=== PATIENT | female | born 1955 | race Caucasian/White ===

== ENCOUNTER 2020-10-09 01:00 | Emergency (ER) | payer BC ==
[2020-10-09] MEDS ORDERED: Ketorolac 60 MG/2 ML SDV IM ONE (01:30)
[2020-10-09] MEDS ORDERED: Acetaminophen/HYDROcodone 325-5 MG Tab PO ONE (01:31)
[2020-10-09] MEDS ORDERED: Baclofen 10 MG Tab PO ONE (01:31)
--- NOTE | 2020-10-09 01:37 | EDM.PDOC ---
ED HPI GENERAL MEDICAL PROBLEM - General Chief Complaint: General Stated Complaint: MUSCLE SPASM Time Seen by Provider: 10/09/20 01:32 Source of Information: Reports: Patient History Limitations: Reports: No Limitations - History of Present Illness INITIAL COMMENTS - FREE TEXT/NARRATIVE: pt had severe pain in the left tmj area radiating accross the face on the rt. She has had this in the past. The pain is there constantly. Onset: Today Duration: Hour(s): Location: Reports: Face Associated Symptoms: Reports: Other ( svere facial pain. ) left TMJ Pain Score (Numeric/FACES): 9 - Related Data Allergies Allergy/AdvReac Type Severity Reaction Status Date / Time No Known Allergies Allergy Verified 10/09/20 01:14 Home Meds: Home Meds Levothyroxine [Synthroid] 50 mcg PO ACBREAKFAST 10/09/20 [History] Past Medical History Endocrine/Metabolic History: Reports: Hypothyroidism, Obesity/BMI 30+ - Infectious Disease History Infectious Disease History: Reports: Chicken Pox, Measles, Mumps, Pertussis (Whooping Cough) - Past Surgical History HEENT Surgical History: Reports: Naso-Sinus Surgery GI Surgical History: Reports: Colonoscopy Social & Family History - Tobacco Use Tobacco Use Status *Q: Never Tobacco User - Caffeine Use Caffeine Use: Reports: None - Recreational Drug Use Recreational Drug Use: No ED ROS GENERAL - Review of Systems Review Of Systems: See Below Constitutional: Reports: No Symptoms HEENT: Reports: Other ( facial pain, spasm. ) Respiratory: Reports: No Symptoms Cardiovascular: Reports: No Symptoms Endocrine: Reports: No Symptoms GI/Abdominal: Reports: No Symptoms : Reports: No Symptoms Musculoskeletal: Reports: Other ( spasm on the left side of her face. ) Skin: Reports: No Symptoms ED EXAM, GENERAL - Physical Exam Exam: See Below Free Text/Narrative:: pt arrived with severe pain on the left side of her face. If feels like the muscles are very tight. She has had this in the past and was told she had TMJ Exam Limited By: No Limitations General Appearance: Alert, Anxious, Moderate Distress Ears: Normal TMs Nose: Normal Inspection Throat/Mouth: Other ( salivary ducts appear normal . parotid gland is not swollen. a) Head: Atraumatic, Other (pt ids tender in the left tmj area. She does have very tight muscles. ) Neck: Normal Inspection Respiratory/Chest: No Respiratory Distress Cardiovascular: Regular Rate, Rhythm GI/Abdominal: Soft, Non-Tender (Female) Exam: Deferred Rectal (Female) Exam: Deferred Back Exam: Normal Inspection Extremities: Normal Inspection Course - Vital Signs Last Recorded V/S: Last Vital Signs Temp 36.6 C 10/09/20 01:15 Pulse 75 10/09/20 01:15 Resp 18 10/09/20 01:15 BP 141/77 H 10/09/20 01:15 Pulse Ox 98 10/09/20 01:15 - Orders/Labs/Meds Meds: Medications Discontinued Medications Generic Name Dose Route Start Last Admin Trade Name Freq PRN Reason Stop Dose Admin Hydrocodone Bitart/Acetaminophen 1 tab 10/09/20 01:31 10/09/20 01:37 Claridge 325-5 Mg PO 10/09/20 01:32 1 tab ONETIME ONE Administration Baclofen 10 mg 10/09/20 01:31 10/09/20 01:37 Lioresal PO 10/09/20 01:32 10 mg ONETIME ONE Administration Ketorolac Tromethamine 60 mg 10/09/20 01:30 10/09/20 01:38 Toradol IM 10/09/20 01:31 60 mg ONETIME ONE Administration - Re-Assessments/Exams Free Text/Narrative Re-Assessment/Exam: 10/09/20 01:37 pt was given torodol 60mg im, baclofen 10 mg and norco 5/325. pt is feeling slightly better and at this point wishes to go home to rest. 10/09/20 01:55 Departure - Departure Time of Disposition: 01:55 Disposition: Home, Self-Care 01 Clinical Impression: TMJ arthralgia - Discharge Information Referrals: Rosa Maria Lake MD [Primary Care Provider] - Forms: ED Department Discharge Care Plan Goals: moist warm heat to the area followed by a cool pack, baclofen 10 mg bid, norco 5/325 q6h prn for severe pain. Sepsis Event Note (ED) - Evaluation Sepsis Screening Result: No Definite Risk - Focused Exam Vital Signs: Vital Signs Temp Pulse Resp BP Pulse Ox 10/09/20 01:15 36.6 C 75 18 141/77 H 98
== END 2020-10-09 02:14 | disposition home or self-care (01) ==
LOC: JP.ED 01:00
DX: M26.622 Arthralgia of left temporomandibular joint (principal); E03.9 Hypothyroidism, unspecified; E66.9 Obesity, unspecified; Z68.32 Body mass index [BMI] 32.0-32.9, adult; Z79.899 Other long term (current) drug therapy
CPT/HCPCS: 96372; 99283; A9270-GY; J1885

== ENCOUNTER 2021-09-23 17:56 | Emergency (ER) | payer BC ==
--- NOTE | 2021-09-23 18:53 | EDM.PDOC ---
ED HPI GENERAL MEDICAL PROBLEM - General Chief Complaint: Respiratory Problem Stated Complaint: COUGH,FEVER, LOW OXYGEN Time Seen by Provider: 09/23/21 18:43 Source of Information: Reports: Patient, Old Records History Limitations: Reports: No Limitations - History of Present Illness INITIAL COMMENTS - FREE TEXT/NARRATIVE: Edwina is a 65-year-old female presenting to the ED for evaluation of possible Covid. Patient states that she has had symptoms for almost a week at this time including fever, chills, cough, shortness of breath, hypoxia as she has been checking her home oximetry, body aches, but denies any headache, nausea or vomiting, constipation or diarrhea. Patient is unvaccinated for COVID-19 because she is concerned about the vaccine interacting with her multiple medications. She has not been taking any substantial measures to avoid contact with others including masking in public. She was scheduled to get a Covid test tomorrow. Her primary provider is Regina Hewitt at [facility]. She felt more short of breath today prompting her to come in for evaluation. - Related Data Allergies Allergy/AdvReac Type Severity Reaction Status Date / Time No Known Allergies Allergy Verified 09/23/21 19:05 Home Meds: Home Meds NK [No Known Home Meds] 09/23/21 [History] Past Medical History Endocrine/Metabolic History: Reports: Hypothyroidism, Obesity/BMI 30+ - Infectious Disease History Infectious Disease History: Reports: Chicken Pox, Measles, Mumps, Pertussis (Whooping Cough) - Past Surgical History HEENT Surgical History: Reports: Naso-Sinus Surgery GI Surgical History: Reports: Colonoscopy Social & Family History - Caffeine Use Caffeine Use: Reports: None ED ROS GENERAL - Review of Systems Review Of Systems: See Below Constitutional: Reports: Fever, Chills, Malaise, Weakness HEENT: Reports: Rhinitis Respiratory: Reports: Shortness of Breath, Cough, Sputum (Mucousy sputum) Cardiovascular: Reports: No Symptoms Endocrine: Reports: Fatigue GI/Abdominal: Reports: No Symptoms : Reports: No Symptoms Musculoskeletal: Reports: Muscle Pain Skin: Reports: No Symptoms Neurological: Reports: Weakness (Generalized weakness) Psychiatric: Reports: Anxiety Hematologic/Lymphatic: Reports: No Symptoms Immunologic: Reports: No Symptoms ED EXAM, GENERAL - Physical Exam Exam: See Below Exam Limited By: No Limitations General Appearance: Alert, Anxious, Mild Distress Eye Exam: Bilateral Eye: EOMI, PERRL Ears: Normal External Exam, Normal TMs Nose: Nasal Swelling, Nasal Drainage, Clear Rhinorrhea Throat/Mouth: Normal Inspection, Normal Oropharynx, No Airway Compromise Head: Atraumatic, Normocephalic Neck: Normal Inspection, Supple. No: Lymphadenopathy (R), Lymphadenopathy (L) Respiratory/Chest: No Respiratory Distress, No Accessory Muscle Use, Decreased Breath Sounds (Minutes breath sounds in the bases), Rhonchi (Had a rhonchi especially in the bases) Cardiovascular: Normal Peripheral Pulses, Regular Rate, Rhythm, No Murmur Peripheral Pulses: 2+: Radial (L), Radial (R) GI/Abdominal: Normal Bowel Sounds, Soft, Non-Tender Back Exam: Normal Inspection Extremities: Normal Inspection Neurological: Alert, Oriented, Normal Cognition, No Motor/Sensory Deficits Psychiatric: Normal Affect Skin Exam: Warm, Dry, Intact, Normal Color, No Rash Course - Vital Signs Last Recorded V/S: Last Vital Signs Temp 38.4 C H 09/23/21 19:10 Pulse 102 H 09/23/21 19:10 Resp 22 H 09/23/21 19:10 BP 108/71 09/23/21 19:10 Pulse Ox 90 L 09/23/21 19:10 - Orders/Labs/Meds Orders: Active Orders 24 hr Category Date Time Status Chest 1V Frontal [CR] Stat Exams 09/23/21 18:43 Taken Isolation [COMM] Stat Oth 09/23/21 18:44 Ordered Labs: Laboratory Tests 09/23/21 09/23/21 09/23/21 Range/Units 18:43 19:14 19:14 WBC 4.5 (4.5-11.0) K/uL RBC 4.00 (3.30-5.50) M/uL Hgb 11.8 L (12.0-15.0) g/dL Hct 36.0 (36.0-48.0) % MCV 90 (80-98) fL MCH 30 (27-31) pg MCHC 33 (32-36) % Plt Count 165 (150-400) K/uL Neut % (Auto) 57.3 (36-66) % Lymph % (Auto) 27.8 (24-44) % [place] % (Auto) 14.1 H (2-6) % Eos % (Auto) 0.4 L (2-4) % Baso % (Auto) 0.4 (0-1) % D-Dimer, Quantitative 636.24 H (0.0-500.0) ng/mL Sodium (140-148) mmol/L Potassium (3.6-5.2) mmol/L Chloride (100-108) mmol/L Carbon Dioxide (21-32) mmol/L Anion Gap (5.0-14.0) mmol/L BUN (7-18) mg/dL Creatinine (0.6-1.0) mg/dL Est Cr Clr Drug Dosing mL/min Estimated GFR (MDRD) (>60) Glucose (74-106) mg/dL Lactic Acid (0.4-2.0) mmol/L Calcium (8.5-10.1) mg/dL Ferritin (8-388) ng/ml Total Bilirubin (0.2-1.0) mg/dL AST (15-37) U/L ALT (12-78) U/L Alkaline Phosphatase (46-116) U/L Lactate Dehydrogenase (82-234) U/L C-Reactive Protein (0.0-0.3) mg/dL Total Protein (6.4-8.2) g/dL Albumin (3.4-5.0) g/dL Globulin (2.3-3.5) g/dL Albumin/Globulin Ratio (1.2-2.2) Influenza Type A RNA Negative (NEGATIVE) RSV RNA (INAAT) Negative (NEGATIVE) Influenza Type B RNA Negative (NEGATIVE) SARS-CoV-2 RNA (DERRICK) Positive H (NEGATIVE) 09/23/21 09/23/21 Range/Units 19:14 19:14 WBC (4.5-11.0) K/uL RBC (3.30-5.50) M/uL Hgb (12.0-15.0) g/dL Hct (36.0-48.0) % MCV (80-98) fL MCH (27-31) pg MCHC (32-36) % Plt Count (150-400) K/uL Neut % (Auto) (36-66) % Lymph % (Auto) (24-44) % [place] % (Auto) (2-6) % Eos % (Auto) (2-4) % Baso % (Auto) (0-1) % D-Dimer, Quantitative (0.0-500.0) ng/mL Sodium 132 L (140-148) mmol/L Potassium 4.0 (3.6-5.2) mmol/L Chloride 97 L (100-108) mmol/L Carbon Dioxide 28 (21-32) mmol/L Anion Gap 11.0 (5.0-14.0) mmol/L BUN 10 (7-18) mg/dL Creatinine 0.8 (0.6-1.0) mg/dL Est Cr Clr Drug Dosing 64.77 mL/min Estimated GFR (MDRD) > 60 (>60) Glucose 127 H (74-106) mg/dL Lactic Acid 0.6 (0.4-2.0) mmol/L Calcium 8.2 L (8.5-10.1) mg/dL Ferritin 351 (8-388) ng/ml Total Bilirubin 0.5 (0.2-1.0) mg/dL AST 34 (15-37) U/L ALT 41 (12-78) U/L Alkaline Phosphatase 145 H (46-116) U/L Lactate Dehydrogenase 246 H (82-234) U/L C-Reactive Protein 9.20 H (0.0-0.3) mg/dL Total Protein 7.8 (6.4-8.2) g/dL Albumin 3.2 L (3.4-5.0) g/dL Globulin 4.6 H (2.3-3.5) g/dL Albumin/Globulin Ratio 0.7 L (1.2-2.2) Influenza Type A RNA (NEGATIVE) RSV RNA (INAAT) (NEGATIVE) Influenza Type B RNA (NEGATIVE) SARS-CoV-2 RNA (DERRICK) (NEGATIVE) - Radiology Interpretation Free Text/Narrative:: I reviewed the patient's one-view portable chest x-ray showing patchy infiltrates throughout both lung meneses consistent with Covid pneumonia. - Re-Assessments/Exams Free Text/Narrative Re-Assessment/Exam: 09/23/21 20:42 I reviewed the patient's labs showing as normal CBC with a leukocyte count of 4.5, hemoglobin 11.8, hematocrit of 36.0 and a platelet count of 165,000. The comprehensive metabolic panel shows a sodium 132, potassium of 4.0, chloride of 97, bicarbonate of 28, BUN of 10 with a creatinine of 0.8 and a glucose of 127. Calcium is 8.2. Lactate is 0.6. Of the Covid test the D- dimer is 636, LDH is 246, C-reactive protein is 9.2 and ferritin is 351. Currently the patient does not require hospitalization as she is oxygenating well on room air. I will arrange for her to get the monoclonal antibody therapy tomorrow which the patient is in agreement with. At this time she is suitable for discharge home to isolate. Indications to return to the ED were discussed with the patient. Departure - Departure Time of Disposition: 20:39 Disposition: Home, Self-Care 01 Clinical Impression: Pneumonia due to COVID-19 virus, COVID-19 - Discharge Information Instructions: 10 Things You Can Do to Manage Your COVID-19 Symptoms at Home - [facility] (05/31/2021), COVID-19 Frequently Asked Questions, COVID-19: What to Do If You Are Sick- [facility] (01/30/2021) Referrals: Regina Hewitt PA-C [Primary Care Provider] - Forms: ED Department Discharge Care Plan Goals: I have ordered the monoclonal antibody infusion to treat your COVID-19. You will be contacted with a time to come in for your infusion. In the meantime I w ant you to go home and isolate from others as to not to spread this to anyone else. Should you become sufficiently short of breath that you feel you cannot manage at home, please return to the ED for reevaluation. Sepsis Event Note (ED) - Focused Exam Vital Signs: Vital Signs Temp Pulse Resp BP Pulse Ox 09/23/21 19:10 38.4 C H 102 H 22 H 108/71 90 L 09/23/21 18:17 38.4 C H 102 H 22 H 108/71 90 L - Problem List & Annotations (1) COVID-19 SNOMED Code(s): 036479282 Code(s): U07.1 - COVID-19 Status: Acute Priority: High Current Visit: Yes (2) Pneumonia due to COVID-19 virus SNOMED Code(s): 852098384626271831 Code(s): U07.1 - COVID-19; J12.82 - PNEUMONIA DUE TO CORONAVIRUS DISEASE 2018 Status: Acute Priority: High Current Visit: Yes - Problem List Review Problem List Initiated/Reviewed/Updated: Yes - My Orders Last 24 Hours: My Active Orders 09/23/21 18:43 Chest 1V Frontal [CR] Stat 09/23/21 18:44 Isolation [COMM] Stat - Assessment/Plan Last 24 Hours: My Active Orders 09/23/21 18:43 Chest 1V Frontal [CR] Stat 09/23/21 18:44 Isolation [COMM] Stat
[2021-09-23 19:36] LABS: CORONAVIRUS COVID-19 NAA POSITIVE (NEGATIVE)
--- NOTE | 2021-09-24 08:48 | CR ---
CHEST: Portable 09/23/2021 at 7:47 PM CLINICAL HISTORY:Dyspnea and cough COMPARISON:2012 FINDINGS: There are diffuse bilateral pulmonary infiltrates. Heart size and pulmonary vascular normal. There are atherosclerotic changes in the aorta.. Impression: Diffuse increase in lung markings most consistent with pneumonitis
== END 2021-09-23 20:50 | disposition home or self-care (01) ==
LOC: JP.ED 17:56
DX: U07.1 COVID-19 (principal); J12.82 Pneumonia due to coronavirus disease 2019; E03.9 Hypothyroidism, unspecified; E66.9 Obesity, unspecified; Z68.35 Body mass index [BMI] 35.0-35.9, adult
CPT/HCPCS: 0241U; 36415; 71045; 80053; 82728; 83605; 83615; 85025; 85379; 86140; 99285

== ENCOUNTER 2022-03-24 05:17 | Emergency (ER) | payer BC | END 2022-03-24 06:24 | disposition home or self-care (01) | LOC: JP.ED 05:17 | DX: R51.9 Headache, unspecified (principal); E03.9 Hypothyroidism, unspecified; E66.9 Obesity, unspecified; Z68.34 Body mass index [BMI] 34.0-34.9, adult | CPT/HCPCS: 99283 ==

== ENCOUNTER 2022-03-24 22:30 | Emergency (ER) | payer BC ==
[2022-03-24] MEDS ORDERED: HYDROmorphone 1 MG/ML Syringe IM ONE (23:12)
[2022-03-25] MEDS ORDERED: Gabapentin 300 MG Cap PO ONE (00:03)
== END 2022-03-25 00:40 | disposition home or self-care (01) ==
LOC: JP.ED 22:30
DX: R51.9 Headache, unspecified (principal); R68.84 Jaw pain; E03.9 Hypothyroidism, unspecified; E66.9 Obesity, unspecified; Z68.32 Body mass index [BMI] 32.0-32.9, adult
CPT/HCPCS: 96372; 99283-25; 99285; A9270-GY; J1170